=== PATIENT | male | born 1950 | race Caucasian/White ===

== ENCOUNTER 2016-11-03 05:29 | Day surgery (SDC) | payer OTHER ==
[~2016-11-03] VITALS: Ht 188 cm; Wt 127.4 kg
[~2016-11-03 05:29] MED LIST: ASPIRIN81 M2 PO; ATENOLOL25 MG PO; CENTRUM ULTRA1 EACH PO; CIPRO500 MG PO; CRESTOR40 MG PO; FLAX OIL1000 MG PO; GARCINIA CAMBO1 EACH PO; IRON325 M1 PO; LIPITOR80 MG PO; LISINOPRIL5 MG PO; OMEGA 3-6-9 11200 MG PO; STOOL SOFTENER100 MG PO; TRADJENTA5 MG PO
[2016-11-03 06:32] VITALS: BP 125/60
[2016-11-03 09:01] VITALS: BP 119/55
[2016-11-03 09:56] VITALS: BP 97/53
== END 2016-11-03 09:56 | disposition home or self-care (01) ==
LOC: SDC 05:29
PROVIDERS: Urology
DX: Z46.6 Encounter for fitting and adjustment of urinary device (principal); I10 Essential (primary) hypertension; E11.9 Type 2 diabetes mellitus without complications; E78.5 Hyperlipidemia, unspecified
CPT/HCPCS: 74420; 82948; C1876; J0295; J1100; J1885; J2250; J2405; J3010; J7050

== ENCOUNTER 2017-07-27 07:19 | Day surgery (SDC) | payer OTHER, BC ==
[~2017-07-27] VITALS: Ht 188 cm; Wt 127.0 kg
[2017-07-27 07:42] VITALS: BP 137/66
[2017-07-27 08:10] LABS: POINT-OF-CARE METER ID UU14174212
[2017-07-27 10:37] LABS: POINT-OF-CARE METER ID UU13113675
[2017-07-27 11:15] VITALS: BP 120/72
[2017-07-27 12:01] VITALS: BP 109/56
== END 2017-07-27 12:15 | disposition home or self-care (01) ==
LOC: SDC 07:19
PROVIDERS: Urology
DX: N13.0 Hydronephrosis with ureteropelvic junction obstruction (principal); N13.1 Hydronephrosis with ureteral stricture, not elsewhere classified; I12.9 Hypertensive chronic kidney disease with stage 1 through stage 4 chronic kidney disease, or unspecified chronic kidney disease; E11.22 Type 2 diabetes mellitus with diabetic chronic kidney disease; N18.2 Chronic kidney disease, stage 2 (mild); K21.9 Gastro-esophageal reflux disease without esophagitis; E78.00 Pure hypercholesterolemia, unspecified; I25.2 Old myocardial infarction; Z79.82 Long term (current) use of aspirin; E66.9 Obesity, unspecified; Z87.891 Personal history of nicotine dependence; Z79.84 Long term (current) use of oral hypoglycemic drugs; Z68.35 Body mass index [BMI] 35.0-35.9, adult
CPT/HCPCS: 74420; 82948; C2625; J0330; J0690; J2405; J3010; J7050

== ENCOUNTER 2018-02-15 08:05 | Day surgery (SDC) | payer OTHER, BC ==
[~2018-02-15] VITALS: Ht 188 cm; Wt 129.3 kg
[~2018-02-15 08:05] MED LIST changes: +TYLENOL REGULA325 MG PO
[2018-02-15] MEDS ORDERED: URICALM PO (08:34)
[2018-02-15 08:42] VITALS: BP 150/72
[2018-02-15 10:04] LABS: CHLORIDE 106 MEQ/L (99-109); CREATININE 1.1 MG/DL (0.6-1.3); GFR ESTIMATE (CALCULATED) > 59 mL/min/ (58.99-99999); GLUCOSE 134 mg/dL (70-99); POTASSIUM 4.3 MEQ/L (3.7-5.4); SODIUM 140 MEQ/L (136-147); UREA NITROGEN (BUN) 16 mg/dL (9-23)
[2018-02-15 12:00] VITALS: BP 124/59
== END 2018-02-15 12:05 | disposition home or self-care (01) ==
LOC: SDC 08:05
PROVIDERS: Urology
DX: N13.5 Crossing vessel and stricture of ureter without hydronephrosis (principal); I12.0 Hypertensive chronic kidney disease with stage 5 chronic kidney disease or end stage renal disease; E11.22 Type 2 diabetes mellitus with diabetic chronic kidney disease; N18.6 End stage renal disease; Z99.2 Dependence on renal dialysis; E78.00 Pure hypercholesterolemia, unspecified; Z87.891 Personal history of nicotine dependence; Z79.82 Long term (current) use of aspirin; I25.2 Old myocardial infarction
CPT/HCPCS: 74018; 76000; 80048; 82948; C2625; J0330; J1580; J2250; J2405

== ENCOUNTER 2018-05-10 14:58 | Observation (INO) | payer OTHER, BC ==
[~2018-05-10] VITALS: Ht 188 cm; Wt 130.4 kg
[~2018-05-10 14:58] MED LIST changes: +URICALM PO
[2018-05-10 15:56] LABS: HEMATOCRIT 44.8 % (38.0-50.0); HEMOGLOBIN 15.6 G/DL (12.5-16.6); MCH 30.2 PG (29.0-34.0); MCHC 34.8 G/DL (30.0-36.0); MCV 86.7 FL (86-99); PLATELET COUNT 220 K/uL (156-360); RBC DIS.WIDTH-CV 12.1 % (11.8-14.6); RBC DIS.WIDTH-SD 38.7 % (39-53); RED BLOOD COUNT 5.17 M/uL (4.00-5.50); WHITE BLOOD COUNT 18.2 K/uL (4.1-10.2)
[2018-05-10 16:26] LABS: ALKALINE PHOSPHATASE 49 IU/L (3-129); ALT (GPT) 15 IU/L (3-49); AST (GOT) 19 IU/L (2-34); CHLORIDE 103 MEQ/L (99-109); CREATININE 1.1 MG/DL (0.6-1.3); GFR ESTIMATE (CALCULATED) > 59 mL/min/ (58.99-99999); GLUCOSE 161 mg/dL (70-99); LIPASE 15 U/L (1.0-51.0); POTASSIUM 3.9 MEQ/L (3.7-5.4); SODIUM 138 MEQ/L (136-147); TOTAL BILIRUBIN 1.4 MG/DL (0.0-1.0); TOTAL PROTEIN 6.9 G/DL (6.4-8.3); UREA NITROGEN (BUN) 22 mg/dL (9-23)
[2018-05-10] MEDS ORDERED: CRESTOR40 MG PO (20:16)
[2018-05-10] MEDS ORDERED: ENULOSE10 GM/15 M PO (20:18)
[2018-05-10 23:40] LABS: APPEARANCE SL.HAZY ((CLEAR)); BILIRUBIN NEGATIVE; BLOOD LARGE; COLOR AMBER ((YELLOW)); GLUCOSE (STRIP) NEGATIVE; KETONES NEGATIVE; LEUKOCYTES LARGE; NITRITE POSITIVE; PROTEIN (STRIP) 100; SPECIFIC GRAVITY 1.059 (1.000-1.030)
[2018-05-11] VITALS: BP 157/69
[2018-05-11] LABS: BACTERIA NONE SEEN /HPF; EPITHELIAL CELLS RARE /HPF; MUCUS TRACE /LPF; RED BLOOD CELLS TNTC /HPF (0-5); WHITE BLOOD CELLS TNTC /HPF (0-5)
[2018-05-11 05:51] LABS: HEMATOCRIT 40.7 % (38.0-50.0); HEMOGLOBIN 13.7 G/DL (12.5-16.6); MCH 29.9 PG (29.0-34.0); MCHC 33.7 G/DL (30.0-36.0); MCV 88.9 FL (86-99); PLATELET COUNT 193 K/uL (156-360); RBC DIS.WIDTH-CV 12.5 % (11.8-14.6); RBC DIS.WIDTH-SD 40.5 % (39-53); RED BLOOD COUNT 4.58 M/uL (4.00-5.50); WHITE BLOOD COUNT 7.3 K/uL (4.1-10.2)
[2018-05-11 06:14] LABS: CHLORIDE 107 MEQ/L (99-109); CREATININE 1.2 MG/DL (0.6-1.3); GFR ESTIMATE (CALCULATED) > 59 mL/min/ (58.99-99999); GLUCOSE 157 mg/dL (70-99); SODIUM 141 MEQ/L (136-147); UREA NITROGEN (BUN) 26 mg/dL (9-23)
[2018-05-11 07:23] VITALS: BP 153/67
[2018-05-11 09:46] VITALS: BP 136/74
[2018-05-11] MEDS ORDERED: FLAGYL500 MG PO (13:00)
[2018-05-11] MEDS ORDERED: CEFDINIR300 MG PO (13:00)
== END 2018-05-11 13:50 | disposition home or self-care (01) ==
LOC: EME 14:58 → EXP 14:58 → ENRESERV 18:52 → EDOF 21:39 → 5SOUTH 21:39 → CANRESERV 22:03 → ENRESERV 22:03 → 5SOUTH 23:00 → ENPENDDIS 05-11 13:05 → 5SOUTH 05-11 13:50
PROVIDERS: Hospitalist; Nurse Practitioner Family
DX: K56.609 Unspecified intestinal obstruction, unspecified as to partial versus complete obstruction (principal); N39.0 Urinary tract infection, site not specified; K43.5 Parastomal hernia without obstruction or gangrene; Z93.3 Colostomy status; E66.9 Obesity, unspecified; Z68.37 Body mass index [BMI] 37.0-37.9, adult; I25.10 Atherosclerotic heart disease of native coronary artery without angina pectoris; Z95.5 Presence of coronary angioplasty implant and graft; I10 Essential (primary) hypertension; E78.5 Hyperlipidemia, unspecified; Z79.82 Long term (current) use of aspirin; Z88.0 Allergy status to penicillin
CPT/HCPCS: 74177; 80048; 80053; 81003; 82948; 83605; 83690; 85027; 99281; 99285; G0378; J0696; J1650; J1885; J2270; J2405; J3010; J7030; S0028; S0030